=== PATIENT | male | born 1965 | race Caucasian/White ===

== ENCOUNTER 2022-03-31 12:54 | Emergency (ER) | payer OTHER ==
[~2022-03-31] VITALS: Ht 167.6 cm; Wt 68.2 kg
[~2022-03-31 12:54] MED LIST: ARIP10TA38 PO; LANS30CA55 PO; [UNRECOGNIZED DRUG - CODE] PO
[2022-03-31 12:56] VITALS: BP 145/93
[2022-03-31] MEDS ORDERED: LURA20TA PO (13:02)
[2022-03-31] MEDS ORDERED: LISI-894 PO (13:02)
[2022-03-31] MEDS ORDERED: ATEN-73 PO (13:02)
== END 2022-03-31 18:45 | disposition left against medical advice (07) ==
LOC: EMS 13:07
DX: Z53.21 Procedure and treatment not carried out due to patient leaving prior to being seen by health care provider (principal)
CPT/HCPCS: 82962

== ENCOUNTER 2022-04-23 17:21 | Inpatient (IN) | payer OTHER ==
[~2022-04-23] VITALS: Ht 170.2 cm; Wt 81.3 kg
[~2022-04-23 17:21] MED LIST changes: +ATEN-73 PO; +LISI-894 PO; +LURA20TA PO
[2022-04-23 18:18] LABS: BASOPHILS % (AUTO) 0.3 % (0.0-2.0); EOSINOPHILS % (AUTO) 0.8 % (1.0-6.0); HEMOGLOBIN 13.9 g/dL (13.5-17.5); LYMPHOCYTES # (AUTO) 0.6 K/uL (1.0-4.8); LYMPHOCYTES % (AUTO) 8.5 % (22.0-44.0); MEAN CORPUSCULAR HEMOGLOBIN 30.2 pg (26.0-34.0); MEAN CORPUSCULAR HGB CONC 33.9 G/dL (31.0-37.0); MEAN CORPUSCULAR VOLUME 89 fL (80-100); MONOCYTES # (AUTO) 0.3 K/uL (0.1-1.0); MONOCYTES % (AUTO) 3.7 % (2.0-9.0); NEUTROPHILS # (AUTO) 6.5 K/uL (1.8-7.7); NEUTROPHILS % (AUTO) 86.7 % (40.0-70.0); PLATELET COUNT (AUTO) 268 K/uL (150-450); RED CELL DISTRIBUTION WIDTH 13.1 % (11.5-14.5)
[2022-04-23] MEDS ORDERED: NALOXONE HCL 1 MG/ML 2 ML SYRINGE ONE (18:22)
[2022-04-23 18:25] LABS: ANION GAP 10 mmol/L (8-16); CALCIUM, TOTAL 8.8 mg/dL (8.8-10.5); CARBON DIOXIDE 26 mmol/L (22-29); CHLORIDE 102 mmol/L (98-107); CREATININE 0.93 mg/dL (0.60-1.30); GLOMERULAR FILTR. RATE CALC > 60 mL/min (>60); GLUCOSE,RANDOM 197 mg/dL (70-110); POTASSIUM 3.3 mmol/L (3.5-5.1); SODIUM SERUM 138 mmol/L (136-145); UREA NITROGEN, BLOOD 21 mg/dL (7-18)
[2022-04-23] MEDS ORDERED: NALOXONE HCL 1 MG/ML 2 ML SYRINGE IVP ONE (18:30)
[2022-04-23 18:38] LABS: B-TYPE NATRIURETIC PEPTIDE 13 pg/mL (0-100)
[2022-04-23 18:50] LABS: ALANINE AMINOTRANSFERASE 63 U/L (12-78); ALBUMIN 3.5 g/dL (3.4-5.0); ALKALINE PHOSPHATASE 95 U/L (46-116); ASPARTATE AMINOTRANSFERASE 41 U/L (15-37); BILIRUBIN,TOTAL 0.5 mg/dL (0.1-1.0); CREATINE KINASE, TOTAL ONLY 97 U/L (39-308); TOTAL PROTEIN, SERUM 7.9 g/dL (6.4-8.2)
[2022-04-23 18:58] LABS: ABG BASE EXCESS 1.4 mmol/L (-2.0-3.0); ABG CARBOXYHEMOGLOBIN 1.4 % (0.0-1.5); ABG HCO3 25.2 mmol/L (22.0-26.0); ABG METHEMOGLOBIN 0.3 % (0.0-1.5); ABG OXYGEN CONTENT 19.4 mL/dL (15.0-23.0); ABG OXYGEN SATURATION 93.8 % (95.0-98.0); ABG OXYHEMOGLOBIN 92.2 % (94.0-100.0); ABG PCO2 47 mmHg (35-45); ABG PH 7.374 (7.35-7.450); PO2, ARTERIAL BG 72.8 mmHg (84.0-92.0); SITE, BLOOD GAS RT BRACHIAL; SOURCE, BLOOD GAS ARTERIAL; TEMPERATURE, FAHRENHEIT, BG 98.9 FAHREN (96.0-98.6)
[2022-04-23 18:59] LABS: O2 DEVICE,BLOOD GAS NRB (ROOM AIR)
[2022-04-23] MEDS ORDERED: AZITHROMYCIN 500 MG/NS 250 ML IV ONE (20:15)
[2022-04-23] MEDS ORDERED: PIPERACILLIN/TAZO 3.375 GM/D5W 50 ML IV ONE (20:15)
[2022-04-23 21:39] LABS: COVID AG,FIA SOURCE NASOPHARYNGEAL
[2022-04-23] MEDS ORDERED: POTASSIUM CHL 10 MEQ/WATER 50 ML IV PRN (22:00)
[2022-04-23] MEDS ORDERED: ACETAMINOPHEN 325 MG TABLET PO PRN (22:00)
[2022-04-23] MEDS ORDERED: POTASSIUM CHLORIDE 20 MEQ ER TABLET PO PRN (22:00)
[2022-04-23] MEDS ORDERED: ONDANSETRON HCL 4 MG/2 ML VIAL IVP PRN (22:00)
[2022-04-23] MEDS ORDERED: NALOXONE HCL 1 MG/ML 2 ML SYRINGE SQ ONE (22:00)
[2022-04-23 22:43] LABS: HEMOGLOBIN A1C 6.1 % (3.8-5.6)
[2022-04-23 23:34] VITALS: BP 139/69
[2022-04-24] VITALS: BP 126/62
[2022-04-24] MEDS ORDERED: HEPARIN SODIUM,PORCINE 5,000 UNITS/ML VIAL SQ SCH
[2022-04-24] MEDS ORDERED: SODIUM CHLORIDE 0.9% 250 ML IV ONE (02:06)
[2022-04-24] MEDS ORDERED: PIPERACILLIN/TAZO 3.375 GM/D5W 50 ML IV SCH (03:00)
[2022-04-24 04:00] VITALS: BP 104/59
[2022-04-24 05:15] LABS: BASOPHILS % (AUTO) 0.4 % (0.0-2.0); EOSINOPHILS % (AUTO) 0.1 % (1.0-6.0); HEMATOCRIT 37.5 % (41-53); HEMOGLOBIN 12.9 g/dL (13.5-17.5); LYMPHOCYTES # (AUTO) 0.8 K/uL (1.0-4.8); LYMPHOCYTES % (AUTO) 11.9 % (22.0-44.0); MEAN CORPUSCULAR HEMOGLOBIN 30.7 pg (26.0-34.0); MEAN CORPUSCULAR HGB CONC 34.5 G/dL (31.0-37.0); MEAN CORPUSCULAR VOLUME 89 fL (80-100); MONOCYTES # (AUTO) 0.3 K/uL (0.1-1.0); MONOCYTES % (AUTO) 4.1 % (2.0-9.0); NEUTROPHILS # (AUTO) 5.8 K/uL (1.8-7.7); NEUTROPHILS % (AUTO) 83.5 % (40.0-70.0); PLATELET COUNT (AUTO) 231 K/uL (150-450); RED BLOOD CELL COUNT(AUTO) 4.21 MIL/uL (4.50-5.90); RED CELL DISTRIBUTION WIDTH 13.2 % (11.5-14.5)
[2022-04-24 05:30] LABS: ANION GAP 9 mmol/L (8-16); CALCIUM, TOTAL 8.8 mg/dL (8.8-10.5); CARBON DIOXIDE 25 mmol/L (22-29); CHLORIDE 98 mmol/L (98-107); CREATININE 0.84 mg/dL (0.60-1.30); GLUCOSE,RANDOM 128 mg/dL (70-110); POTASSIUM 3.7 mmol/L (3.5-5.1); SODIUM SERUM 132 mmol/L (136-145); UREA NITROGEN, BLOOD 20 mg/dL (7-18)
[2022-04-24 05:47] LABS: GLOMERULAR FILTR. RATE CALC > 60 mL/min (>60)
[2022-04-24] MEDS ORDERED: ARIPiprazole 10 MG TABLET PO SCH (09:00)
[2022-04-24] MEDS ORDERED: ATENOLOL 25 MG TABLET PO SCH (09:00)
[2022-04-24] MEDS ORDERED: LISINOPRIL 20 MG TABLET PO SCH (09:00)
[2022-04-24] MEDS ORDERED: ETHYL ALCOHOL 62% ANTISEPTIC NASAL SANITIZER 0.6 ML AMPUL NASAL SCH (09:00)
[2022-04-24] MEDS ORDERED: LURASIDONE HCL 20 MG TABLET PO SCH (17:30)
== END 2022-04-24 08:15 | disposition left against medical advice (07) | DRG 917 ==
LOC: EMS 17:21 → ICU 22:15
PROVIDERS: ADMIT Internal Medicine; ATTEND Internal Medicine
PROC: 5A0935A Assistance with Respiratory Ventilation, Less than 24 Consecutive Hours, High Flow/Velocity Cannula (ICD-10-PCS; principal; 2022-04-23)
DX: T40.2X1A Poisoning by other opioids, accidental (unintentional), initial encounter (principal); G92.8 Other toxic encephalopathy; J69.0 Pneumonitis due to inhalation of food and vomit; J96.01 Acute respiratory failure with hypoxia; F20.9 Schizophrenia, unspecified; K21.9 Gastro-esophageal reflux disease without esophagitis; R73.9 Hyperglycemia, unspecified; Z53.29 Procedure and treatment not carried out because of patient's decision for other reasons; Z79.899 Other long term (current) drug therapy; Y92.89 Other specified places as the place of occurrence of the external cause; Z20.822 Contact with and (suspected) exposure to COVID-19
CPT/HCPCS: 36600; 71045; 80048; 80053; 82550; 82805; 83036; 83735; 83880; 84484; 85025; 87081; 93005; 99291; G0378; G0480; J0456; J1644; J2310; J2543; J7050; Q9967; 36415-L1; 36415-TC

== ENCOUNTER 2023-02-14 09:19 | Emergency (ER) | payer OTHER ==
[~2023-02-14] VITALS: Ht 172.7 cm; Wt 79.5 kg
[2023-02-14] MEDS ORDERED: VENL-68 PO (09:30)
[2023-02-14] MEDS ORDERED: METF-1211 PO (09:30)
[2023-02-14] MEDS ORDERED: CHOL200059 PO (09:30)
[2023-02-14] MEDS ORDERED: LURA60TA PO (09:30)
[2023-02-14] MEDS ORDERED: LIDOCAINE 1% 10 ML VIAL SQ ONE (09:45)
[2023-02-14 10:25] VITALS: BP 132/90
[2023-02-14] MEDS ORDERED: SULF-261 PO (10:26)
[2023-02-14] MEDS ORDERED: CEPH-558 PO (10:26)
== END 2023-02-14 10:38 | disposition home or self-care (01) ==
LOC: EMS 09:25
DX: L03.011 Cellulitis of right finger (principal); E11.9 Type 2 diabetes mellitus without complications; K21.9 Gastro-esophageal reflux disease without esophagitis; I10 Essential (primary) hypertension; F20.9 Schizophrenia, unspecified; Z79.899 Other long term (current) drug therapy; Z79.84 Long term (current) use of oral hypoglycemic drugs
CPT/HCPCS: 99284; 10160; 82962; J3490

== ENCOUNTER 2023-05-16 11:36 | Emergency (ER) | payer OTHER ==
[~2023-05-16] VITALS: Ht 170.2 cm; Wt 81.8 kg
[~2023-05-16 11:36] MED LIST changes: +CEPH-558 PO; +CHOL200059 PO; -LANS30CA55 PO; -LURA20TA PO; +LURA60TA PO; +METF-1211 PO; +SULF-261 PO; +VENL-68 PO
[2023-05-16] MEDS ORDERED: EMPA10TA3 PO (11:42)
[2023-05-16] MEDS ORDERED: ATOR40TA28 PO (11:42)
[2023-05-16 11:45] VITALS: BP 130/88; PULSE 102; RESP 18; TEMP 98.6
[2023-05-16] MEDS ORDERED: LIDOCAINE 1% 10 ML VIAL SQ ONE (12:30)
[2023-05-16] MEDS ORDERED: POVIDONE-IODINE 10% 120 ML SOLUTION TP ONE (12:30)
[2023-05-16] MEDS ORDERED: CEPH-558 PO (12:40)
== END 2023-05-16 12:56 | disposition home or self-care (01) ==
LOC: EMS 11:36
DX: I10 Essential (primary) hypertension (principal); F20.9 Schizophrenia, unspecified; F12.90 Cannabis use, unspecified, uncomplicated; F17.210 Nicotine dependence, cigarettes, uncomplicated
CPT/HCPCS: 99284; 26010; J3490

== ENCOUNTER 2023-09-18 17:30 | Emergency (ER) | payer OTHER ==
[~2023-09-18] VITALS: Ht 170.2 cm; Wt 80.0 kg
[~2023-09-18 17:30] MED LIST changes: -ARIP10TA38 PO; +ATOR40TA28 PO; -CHOL200059 PO; +EMPA10TA3 PO; -SULF-261 PO; -[UNRECOGNIZED DRUG - CODE] PO
[2023-09-18 17:40] VITALS: BP 120/79; PULSE 83; RESP 16; TEMP 98.3
[2023-09-18] MEDS ORDERED: LURA60TA PO ×2 (17:53→18:51)
[2023-09-18] MEDS ORDERED: OMEG-189 PO (17:56)
[2023-09-18] MEDS ORDERED: LURASIDONE HCL 60 MG TABLET PO ONE (18:00)
== END 2023-09-18 18:22 | disposition home or self-care (01) ==
LOC: EMS 17:42
DX: Z76.0 Encounter for issue of repeat prescription (principal); E11.9 Type 2 diabetes mellitus without complications; I10 Essential (primary) hypertension; F20.9 Schizophrenia, unspecified; F17.210 Nicotine dependence, cigarettes, uncomplicated
CPT/HCPCS: 99283; 82962; Q9967

== ENCOUNTER 2025-06-20 14:47 | Emergency (ER) | payer OTHER ==
[~2025-06-20] VITALS: Ht 170.2 cm; Wt 68.0 kg
[~2025-06-20 14:47] MED LIST changes: +ATEN-187 PO; -ATEN-73 PO; -CEPH-558 PO; -EMPA10TA3 PO; +LISI-662 PO; -LISI-894 PO; -LURA60TA PO; +LURA80TA2 PO
[2025-06-20 15:10] VITALS: TEMP 98.9
[2025-06-20] MEDS: ACETAMINOPHEN 500 MG TABLET PO ONE (15:56)
[2025-06-20] MEDS: BACITRACIN 0.9 GM PACKET OINTMENT TP ONE (15:56)
[2025-06-20] MEDS: PERTUSS(ACELL),DIPH,TET/PF 0.5 ML SYRINGE [ADULT] IM. ONE (16:14)
[2025-06-20 18:35] VITALS: BP 143/88; PULSE 99; RESP 18; O2SAT 99
== END 2025-06-20 20:03 ==
LOC: EMS 14:47
DX: S00.01XA Abrasion of scalp, initial encounter (principal); M25.522 Pain in left elbow; E11.9 Type 2 diabetes mellitus without complications; F20.9 Schizophrenia, unspecified; I10 Essential (primary) hypertension; F17.210 Nicotine dependence, cigarettes, uncomplicated; K21.9 Gastro-esophageal reflux disease without esophagitis; Z65.3 Problems related to other legal circumstances; Z79.899 Other long term (current) drug therapy; W22.01XA Walked into wall, initial encounter; Y93.89 Activity, other specified; Y92.89 Other specified places as the place of occurrence of the external cause; Y99.8 Other external cause status
CPT/HCPCS: 70450; 72125; 90471; 90715; 99285

== ENCOUNTER 2025-06-22 03:09 | Emergency (ER) | payer OTHER ==
[~2025-06-22] VITALS: Ht 170.2 cm; Wt 81.8 kg
[2025-06-22 03:15] VITALS: BP 117/79; PULSE 98; RESP 17; TEMP 98.5; O2SAT 100
== END 2025-06-22 04:46 ==
LOC: EMS 03:12
DX: S42.402A Unspecified fracture of lower end of left humerus, initial encounter for closed fracture (principal); F17.210 Nicotine dependence, cigarettes, uncomplicated; E11.9 Type 2 diabetes mellitus without complications; K21.9 Gastro-esophageal reflux disease without esophagitis; I10 Essential (primary) hypertension; F20.9 Schizophrenia, unspecified; Z79.899 Other long term (current) drug therapy; Y04.0XXA Assault by unarmed brawl or fight, initial encounter; Y93.89 Activity, other specified; Y92.89 Other specified places as the place of occurrence of the external cause; Y99.8 Other external cause status
CPT/HCPCS: 29105; 99283